=== PATIENT | male | born 1955 | race Two or more races ===

== ENCOUNTER 2020-08-01 14:17 | Inpatient (IN) | payer MEDICARE, OTHER ==
[~2020-08-01] VITALS: Ht 167.6 cm; Wt 72.5 kg
[2020-08-01] MEDS ORDERED: ASPirin-EC 81 mg tab PO ONE (15:15)
[2020-08-01] MEDS ORDERED: ASPirin 81 mg TAB ONE (15:17)
[2020-08-01] MEDS ORDERED: ASPirin 81 mg TAB PO ONE (15:30)
[2020-08-01 15:59] LABS: Basophils # (auto) 0 10 ^3/uL (0-0.2); Basophils % (auto) 0.7 % (0.0-2.0); Eosinophils # (auto) 0.1 10 ^3/uL (0-0.8); Hematocrit 34.8 % (41.0-53.0); Hemoglobin 11.7 g/dL (13.5-17.5); Lymphocytes # (auto) 1.6 10 ^3/uL (0.4-5.4); Lymphocytes % (auto) 29.2 % (10.0-50.0); Mean Corpuscular Hemoglobin 28.5 pg (28.0-32.0); Mean Corpuscular Hgb Conc. 33.6 g/dL (32.0-36.0); Mean Corpuscular Volume 84.8 fL (80.0-100.0); Monocytes # (auto) 0.6 10 ^3/uL (0-1.3); Monocytes % (auto) 11.2 % (0.0-12.0); Neutrophils # (auto) 3.1 10 ^3/uL (1.6-8.6); Neutrophils % (auto) 57.9 % (37.0-80.0); Red Cell Distribution Width 14.9 % (11.8-14.3); White Blood Cell 5.4 10^3/uL (4.4-10.8)
[2020-08-01 16:12] LABS: Chloride 106 mmol/L (98-107); Potassium 4.1 mmol/L (3.5-5.1); Sodium 140 mmol/L (136-145)
[2020-08-01 16:21] LABS: Alanine Aminotransferase 24 U/L (16-61); Albumin 3.5 g/dL (3.4-5.0); Alkaline Phosphatase 85 U/L (45-117); Anion Gap 9 (5-15); Aspartate Aminotransferase 19 U/L (15-37); Bilirubin, Total 0.4 mg/dL (0.2-1.0); Blood Urea Nitrogen 12 mg/dL (7-18); Calcium 8.5 mg/dL (8.5-10.1); Carbon Dioxide 25 mmol/L (21-32); GFR African American 87 mL/min; GFR Non-African American 72 mL/min; Glucose 85 mg/dL (74-106); Total Protein 6.9 g/dL (6.4-8.2)
[2020-08-01] MEDS ORDERED: ONDANSETRON HCL 4 MG/2 ML VIAL IV PRN (17:00)
[2020-08-01] MEDS ORDERED: MORPHINE SULF INJ 2 MG/ML SYRINGE 1ML IV PRN ×2 (17:00)
[2020-08-01] MEDS ORDERED: HYDROcodone-ACET 5/325MG TAB PO PRN (17:00)
[2020-08-01] MEDS ORDERED: NITROGLYCERIN 0.4 MG SL TAB SL PRN (17:00)
[2020-08-01] MEDS ORDERED: ACETAMINOPHEN 500 MG TAB PO PRN (17:00)
[2020-08-01 17:12] LABS: Urine Bacteria FEW /hpf (None Seen); Urine Blood Negative /uL (Negative); Urine Specific Gravity 1.018 (1.001-1.035); Urine WBC <1 /hpf (0 - 3)
[2020-08-01 17:47] LABS: INR 1.03 (0.9-1.15); Partial Thromboplastin Time 24.2 sec (23.0-31.2)
[2020-08-01] MEDS ORDERED: LORazepam 2MG/ML-1ML VIAL IV PRN (19:15)
[2020-08-01 19:53] LABS: Cholesterol 167 mg/dL (< 200); Triglycerides 151 mg/dL (< 150)
[2020-08-01 19:55] LABS: HDL Cholesterol 64 mg/dL (40-59); LDL Cholesterol 85 mg/dL (< 100)
[2020-08-01 22:00] VITALS: BP 127/85
[2020-08-01] MEDS ORDERED: ATORVASTATIN 20 MG TAB PO SCH (22:00)
[2020-08-02 05:00] VITALS: BP 104/64
[2020-08-02 09:00] VITALS: BP 105/78
[2020-08-02] MEDS ORDERED: ASPirin-EC 81 mg tab PO SCH (10:00)
[2020-08-02 12:39] VITALS: BP 119/65
== END 2020-08-02 14:07 | disposition left against medical advice (07) | DRG 69 ==
LOC: ER 14:17 → TELE 16:57 → TELE-EAST 18:58
PROVIDERS: ADMIT Nurse Practitioner Acute Care; ATTEND Nurse Practitioner Acute Care
DX: G45.9 Transient cerebral ischemic attack, unspecified (principal); Z20.822 Contact with and (suspected) exposure to COVID-19; G83.24 Monoplegia of upper limb affecting left nondominant side; Z53.29 Procedure and treatment not carried out because of patient's decision for other reasons; M51.36 Other intervertebral disc degeneration, lumbar region; D64.9 Anemia, unspecified; G89.29 Other chronic pain; Z79.899 Other long term (current) drug therapy; Z82.49 Family history of ischemic heart disease and other diseases of the circulatory system
CPT/HCPCS: 36415; 70450; 71045; 80053; 80061; 81001; 83735; 84484; 85025; 85049; 85610; 85730; 87426; 93005; 93306; 93886; G0378